=== PATIENT | female | born 1970 | race Caucasian/White ===

== ENCOUNTER 2017-07-28 22:55 | Emergency (ER) | payer OTHER ==
[2017-07-28 23:01] VITALS: TEMP 99; BMI 22.7
[2017-07-29] MEDS ORDERED: LIDOCAINE HCL 1%, 10 MG/ML (50 mL VIAL) SQ ONE (00:05)
[2017-07-29] MEDS ORDERED: LIDOCAINE HCL 1%, 10 MG/ML (20ML VIAL) ONE (00:09)
--- NOTE | 2017-07-29 00:13 | PDOC ---
Attending Attestation - Resident Resident Name: Wai Hammonds - ED Attending Attestation I have performed the following: I have examined & evaluated the patient, The case was reviewed & discussed with the resident, I agree w/resident's findings & plan, Exceptions are as noted - HPI HPI: 07/29/17 00:07 "The patient is a 47 year old female, with no significant past medical history, who presents to the emergency department with L shoulder and upper back pain. As per patient, she was picking up a child with her left arm when she felt sudden pain in her shoulder. Pt believes that she dislocated her shoulder when she was younger by falling on it and is concerned she did the same thing today. Pt now reports pain with lifting her arm above her head. Denies injury anywhere else. Allergies: NKA Past surgical history: None reported. Social history: Nonsmoker. Denies EtOH use and recreational drug use. " - Physicial Exam PE: 07/29/17 00:11 """GENERAL: Awake, alert, and fully oriented, in no acute distress. HEAD: No signs of trauma EYES: PERRLA, EOMI, sclera anicteric, conjunctiva clear ENT: Auricles normal inspection, hearing grossly normal, nares patent, oropharynx clear without exudates. Moist mucosa NECK: Nontender, no stepoffs, Normal ROM, supple, no lymphadenopathy, JVD, or masses LUNGS: Breath sounds equal, clear to auscultation bilaterally. No wheezes, and no crackles HEART: Regular rate and rhythm, normal S1 and S2, no murmurs, rubs or gallops ABDOMEN: Soft, nontender, normoactive bowel sounds. No guarding, no rebound. No masses EXTREMITIES: L shoulder without deformity, pain with extension, + tenderness to scapula with palpable muscle knot NEUROLOGICAL: Cranial nerves II through XII intact. 5/5 strength and sensation in all extremities, Normal speech, normal gait, normal cerebellar function SKIN: Warm, Dry, normal turgor, no rashes or lesions noted. """ - Medical Decision Making 07/29/17 00:14 47 F with L shoulder pain after lifting child with L arm. No evidence of dislocation on exam. Pt with palpable knot in L upper back, likely muscle spasm. - XR L shoulder - Toradol - Trigger point injection 07/29/17 00:31 Trigger point injection administered with 1% lidocaine 7cc IM with resolution of muscle spasm. Pt is well appearing, with normal vitals. Clinically stable for DC at this time. I discussed the physical exam findings, ancillary test results and final diagnoses with the patient. I answered all of the patient's questions. The patient was satisfied with the care received and felt comfortable with the discharge plan and treatment plan. The patient agrees to follow up with the primary care physician within 24-72 hours. <Mihai Silver - Last Filed: 07/29/17 00:44> Discharge Disposition <Mihai Silver - Last Filed: 07/29/17 00:44> - Diagnosis Trigger point of shoulder region - Discharge Dispostion Disposition: HOME - Referrals Referrals: ON STAFF,NOT [Primary Care Provider] - Julian Becker MD [Staff Physician] - - Patient Instructions Printed Discharge Instructions: DI for Shoulder Pain Additional Instructions: Take tylenol or motrin as needed for pain. Follow up with an orthopedic surgeon for further evaluation of your shoulder pain. Even though the X rays were normal, we cannot rule out ligament or rotator cuff injury. You may need a MRI. If you experience worsening pain, weakness, numbness, chest pain, shortness of breath, or any other concerning symptoms, return to the ER immediately. - Post Discharge Activity Attestations - Attestations 07/29/17 00:17 Documentation prepared by aMgnus Wells, acting as quality engineer medical device for Mihai Silver MD. <Magnus Wells - Last Filed: 07/29/17 00:17>
[2017-07-29] MEDS ORDERED: KETOROLAC TROMETHAMINE 15 MG/ML VIAL IVPUSH ONE (00:15)
[2017-07-29] MEDS ORDERED: KETOROLAC TROMETHAMINE 15 MG/ML VIAL ONE (00:17)
[2017-07-29 00:54] VITALS: BP 136/78; PULSE 90
--- NOTE | 2017-07-29 03:53 | PDOC ---
History of Present Illness - General Chief Complaint: Shoulder Dislocation Stated Complaint: INJURY Time Seen by Provider: 07/28/17 22:59 History Source: Patient - History of Present Illness Initial Comments: 07/29/17 03:53 47F with no pmh who presents to the emergency department with L shoulder and upper back pain. As per patient, she was picking up a child with her left arm when she felt sudden pain in her shoulder. Pt believes that she dislocated her shoulder when she was younger by falling on it and believes it never healed correctly and is concerned she did the same thing today. Pt now reports pain/ inability with lifting her arm above her head. Denies injury anywhere else. Past History - Suicide/Smoking/Psychosocial Hx Smoking History: Never smoked Have you smoked in the past 12 months: No Information on smoking cessation initiated: No Hx Alcohol Use: No Drug/Substance Use Hx: No Review of Systems - Review of Systems Able to Perform ROS?: Yes Is the patient limited Irish proficient: No Constitutional: No: Symptoms Reported HEENTM: No: Symptoms Reported Respiratory: No: Symptoms reported Cardiac (ROS): No: Symptoms Reported ABD/GI: No: Symptoms Reported : No: Symptoms Reported Musculoskeletal: No: Symptoms Reported Integumentary: No: Symptoms Reported Neurological: No: Symptoms reported All Other Systems: Reviewed and Negative *Physical Exam - Vital Signs Last Vital Signs Temp Pulse Resp BP Pulse Ox 99.0 F 90 17 136/78 100 07/28/17 23:00 07/29/17 00:53 07/29/17 00:53 07/29/17 00:53 07/28/17 23:00 - Physical Exam Comments: 07/29/17 03:56 GENERAL: Awake, alert, and fully oriented, in no acute distress. HEAD: No signs of trauma EYES: PERRLA, EOMI, sclera anicteric, conjunctiva clear ENT: Auricles normal inspection, hearing grossly normal, nares patent, oropharynx clear without exudates. Moist mucosa NECK: Nontender, no stepoffs, Normal ROM, supple, no lymphadenopathy, JVD, or masses LUNGS: Breath sounds equal, clear to auscultation bilaterally. No wheezes, and no crackles HEART: Regular rate and rhythm, normal S1 and S2, no murmurs, rubs or gallops ABDOMEN: Soft, nontender, normoactive bowel sounds. No guarding, no rebound. No masses EXTREMITIES: L shoulder without deformity, pain with extension, + tenderness to scapula with palpable muscle knot NEUROLOGICAL: Cranial nerves II through XII intact. 5/5 strength and sensation in all extremities, Normal speech, normal gait, normal cerebellar function SKIN: Warm, Dry, normal turgor, no rashes or lesions noted. ED Treatment Course - RADIOLOGY Radiology Studies Ordered: Category Date Time Status SHOULDER-LEFT [RAD] Stat Radiology 07/28/17 23:00 Taken - Medications Given in the ED: ED Medications Discontinued Medications Generic Name Dose Route Start Last Admin Trade Name Freq PRN Reason Stop Dose Admin Ketorolac Tromethamine 15 mg 07/29/17 00:15 07/29/17 00:20 Toradol Injection - IVPUSH 07/29/17 00:16 15 mg ONCE ONE Administration Lidocaine HCl 10 ml 07/29/17 00:05 07/29/17 00:16 Xylocaine 1% SQ 07/29/17 00:06 10 ml ONCE ONE Administration Medical Decision Making - Medical Decision Making 07/29/17 03:59 47 F with L shoulder pain after lifting child with L arm. No evidence of dislocation on exam. Pt with palpable knot in L upper back, likely muscle spasm. - XR L shoulder - Toradol - Trigger point injection Trigger point injection administered with 1% lidocaine 7cc IM with resolution of muscle spasm. Pt is well appearing, with normal vitals. Clinically stable for DC at this time. I discussed the physical exam findings, ancillary test results and final diagnoses with the patient. I answered all of the patient's questions. The patient was satisfied with the care received and felt comfortable with the discharge plan and treatment plan. The patient agrees to follow up with the primary care physician within 24-72 hours. *DC/Admit/Observation/Transfer Diagnosis at time of Disposition: Trigger point of shoulder region - Discharge Dispostion Disposition: HOME - Referrals Referrals: Julian Becker MD [Staff Physician] - ON STAFF,NOT [Primary Care Provider] - - Patient Instructions Printed Discharge Instructions: DI for Shoulder Pain Additional Instructions: Take tylenol or motrin as needed for pain. Follow up with an orthopedic surgeon for further evaluation of your shoulder pain. Call the number provided to make an appointment. Even though the X rays were normal, we cannot rule out ligament or rotator cuff injury. You may need a MRI. If you experience worsening pain, weakness, numbness, chest pain, shortness of breath, or any other concerning symptoms, return to the ER immediately. - Post Discharge Activity
== END 2017-07-29 00:47 | disposition home or self-care (01) ==
LOC: JER 22:55
PROC: 3E0333Z Introduction of Anti-inflammatory into Peripheral Vein, Percutaneous Approach (ICD-10-PCS; principal; 2017-07-28)
PROC: 3E023NZ Introduction of Analgesics, Hypnotics, Sedatives into Muscle, Percutaneous Approach (ICD-10-PCS; 2017-07-28)
DX: M25.512 Pain in left shoulder (principal)
CPT/HCPCS: 73030-TC-LT-FY; 99284-25

== ENCOUNTER 2023-07-14 17:21 | Emergency (ER) | payer OTHER ==
[2023-07-14 17:36] VITALS: RESP 18; BMI 24.0
[2023-07-14] MEDS ORDERED: ACETAMINOPHEN 500 MG TABLET (FP) ONE (20:13)
[2023-07-14] MEDS: ACETAMINOPHEN 500 MG TABLET (FP) PO ONE (20:15)
[2023-07-14 20:54] VITALS: BP 163/96; PULSE 70; TEMP 97.9
== END 2023-07-14 21:47 | disposition home or self-care (01) ==
LOC: JER 17:21 → JERFT 17:21
DX: M25.561 Pain in right knee (principal)
CPT/HCPCS: 73562-TC-RT-FY; 99283-25

== ENCOUNTER 2023-07-17 09:15 | Emergency (ER) | payer OTHER ==
[2023-07-17 09:21] VITALS: BP 122/73; PULSE 73; RESP 18; TEMP 98.5; BMI 20.8
[2023-07-17 10:05] LABS: BASO % 0.4 % (0-2.0); EOS % 0.7 % (0-4.5); HEMATOCRIT 35.8 % (32.4-45.2); HEMOGLOBIN 12.1 GM/dL (10.7-15.3); LYMPH % 19.4 % (8-40); MCH 30.4 pg (25.7-33.7); MCHC 33.8 g/dl (32.0-36.0); MEAN CELL VOLUME 90.1 fl (80-96); MEAN PLT VOLUME 8.3 fl (7.5-11.1); MONO % 4.6 % (3.8-10.2); NEUT % 74.9 % (42.8-82.8); PLATELET COUNT 314 10^3/uL (134-434); RBC 3.98 M/mm3 (3.60-5.2); RDW 13.7 % (11.6-15.6); WHITE BLOOD COUNT 8.6 K/mm3 (4.0-10.0)
[2023-07-17 10:29] LABS: CHLORIDE 103 mmol/L (98-107); POTASSIUM 4.2 mmol/L (3.5-5.1); SODIUM 137 mmol/L (136-145)
[2023-07-17 10:31] LABS: ANION GAP 4 mmol/L (4-13); BLOOD UREA NITROGEN 11.2 mg/dL (7-18); CALCIUM 9.1 mg/dL (8.5-10.1); CO2 30 mmol/L (21-32); GLUCOSE,RANDOM 124 mg/dL (74-106)
[2023-07-17 10:34] LABS: CREATININE 0.7 mg/dL (0.55-1.3); SGPT/ALT 26 U/L (13-61)
[2023-07-17 10:35] LABS: SGOT/AST 21 U/L (15-37)
[2023-07-17 10:36] LABS: BILIRUBIN,TOTAL 0.5 mg/dL (0.2-1)
[2023-07-17 10:37] LABS: ALK PHOS 63 U/L (45-117)
== END 2023-07-17 11:06 | disposition home or self-care (01) ==
LOC: JER 09:15
DX: R11.2 Nausea with vomiting, unspecified (principal)
CPT/HCPCS: 36415; 80053; 82550; 84443; 84484; 85025; 93005; 93010; 99284-25